=== PATIENT | female | born 1975 | race African-American/Black ===

== ENCOUNTER 2022-06-16 19:14 | Emergency (ER) | payer OTHER, SELFPAY ==
[2022-06-16 19:24] VITALS: BP 119/67; PULSE 85; RESP 16; TEMP 36.5; O2SAT 97
--- NOTE | 2022-06-16 19:31 | ED.EAR ---
HPI - Ear Problem General Chief complaint: Ear Stated complaint: ear pain Time Seen by Provider: 06/16/22 19:40 Source: patient and RN notes reviewed Mode of arrival: ambulatory Limitations: no limitations History of Present Illness HPI Narrative: 47-year-old female presents concern for suspected foreign body in her left ear. Reports she thinks she has a piece of an earbud in her ear. Reports its irritated. She denies drainage or decreased hearing. She denies any other symptoms. MD Complaint: foreign body Related Data Home Medications Medication Instructions Recorded Confirmed albuterol sulfate 90 mcg/actuation inhalation 06/16/22 aerosol inhaler ergocalciferol (vitamin D2) 1,250 06/16/22 mcg (50,000 unit) capsule fluticasone propionate 44 inhalation 06/16/22 mcg/actuation HFA aerosol inhaler (Flovent HFA) montelukast 10 mg tablet mg 06/16/22 Allergies Allergy/AdvReac Type Severity Reaction Status Date / Time No Known Allergies Allergy Verified 06/16/22 19:31 Review of Systems Review of Systems: CONSTITUTIONAL: Denies malaise, chills, sweats, or fever. EYES: Denies visual changes, redness, or discharge. ENT: Denies rhinorrhea, congestion, sinus pain, and sore throat. Reports foreign body in the left ear CARDIOVASCULAR: Denies chest pain, palpitations, or edema. RESPIRATORY: Denies cough. Denies dyspnea. GASTROINTESTINAL: Denies abdominal pain, nausea, vomiting, diarrhea SKIN: Denies rash or itching. MUSCULOSKELETAL: Denies myalgia. NEUROLOGIC: Denies headache. All systems reviewed & are unremarkable except as noted in HPI and below PMFSH Comments At time of signature, agree with nursing past medical, surgical, social and family history. There is no relevant family history pertinent to the presenting complaint Exam Narrative: GENERAL: Well-appearing, well-nourished, and in no acute distress. HEAD: Normocephalic EYES: PERRLA, conjunctivae clear ENT: Nares clear. Mucous membranes moist. TM pearly pires with dull light reflex bilaterally; no tragal tenderness; foreign body noted in the left EAC. NECK: Supple. No lymphadenopathy CHEST: No respiratory distress, speaks in full sentences. HEART: Regular rate and rhythm. SKIN: Warm, dry, no rash. NEURO: Alert and oriented x3. PSYCH: Normal mood and affect Course Course Emergency Course: Patient is aware of diagnosis, understands and agrees to treatment plan. Anticipatory guidance given. Patient agrees to follow-up as directed and is aware of reasons to seek care at the emergency department. Portions of this record may have been created with voice recognition software Level of Care: Express Care Visit Vital Signs Vital signs: Vital Signs Temperature 97.7 F 06/16/22 19:24 Pulse Rate 85 06/16/22 19:24 Respiratory Rate 16 06/16/22 19:24 Blood Pressure 119/67 06/16/22 19:24 Pulse Oximetry 97 06/16/22 19:24 Oxygen Delivery Room Air 06/16/22 19:24 Temperature 97.7 F 06/16/22 19:24 Pulse Rate 85 06/16/22 19:24 Respiratory Rate 16 06/16/22 19:24 Blood Pressure 119/67 06/16/22 19:24 Pulse Oximetry 97 06/16/22 19:24 Oxygen Delivery Room Air 06/16/22 19:24 Reviewed. Procedures FB Removal Ear Foreign Body #1: Foreign Body Removal Date: 06/16/22 Foreign Body Removal Time: 19:36 Location: ear canal (L) Foreign Body Suspected: other plastic TM intact pre-procedure: yes Foreign Body Removed: yes Foreign Body Removal Technique: forceps Tympanic Membrane Intact Post Procedure: Yes Patient Tolerated Procedure: well Complications: none Medical Decision Making MDM Narrative Medical decision making narrative: Differential diagnosis considered: Echeverria virus, strep pharyngitis, allergic rhinitis, upper respiratory tract infection, sinusitis, rhinosinusitis, nasopharyngitis. viral pharyngitis, otitis media, otitis externa, otitis effusion, cerumen
== END 2022-06-16 19:45 | disposition home or self-care (01) ==
PROVIDERS: Emergency Provider Nurse Practitioner
DX: T16.2XXA Foreign body in left ear, initial encounter (principal); X58.XXXA Exposure to other specified factors, initial encounter; J45.909 Unspecified asthma, uncomplicated
CPT/HCPCS: 69200; 99202; G0463